=== PATIENT | male | born 1990 | race Caucasian/White ===

== ENCOUNTER 2020-05-23 21:20 | Emergency (ER) | payer OTHER ==
[~2020-05-23] VITALS: Ht 165.1 cm; Wt 77.3 kg
[2020-05-23 21:35] VITALS: BP 114/74
== END 2020-05-24 00:24 | disposition home or self-care (01) ==
LOC: EMS 21:20
DX: S09.90XA Unspecified injury of head, initial encounter (principal); H61.22 Impacted cerumen, left ear; W22.8XXA Striking against or struck by other objects, initial encounter; Y93.89 Activity, other specified; Y92.89 Other specified places as the place of occurrence of the external cause; Y99.8 Other external cause status
CPT/HCPCS: 99283; Z7502